=== PATIENT | female | born 1990 | race Caucasian/White ===

== ENCOUNTER 2024-01-28 09:54 | Emergency (ER) | payer MEDICAID ==
[~2024-01-28] VITALS: Ht 152.4 cm; Wt 50.0 kg
[2024-01-28 09:56] VITALS: BP 128/86; PULSE 73; RESP 20; TEMP 98.4; O2SAT 100
== END 2024-01-28 10:36 | disposition home or self-care (01) ==
LOC: ER 09:54
DX: H00.11 Chalazion right upper eyelid (principal)
CPT/HCPCS: 99281

== ENCOUNTER 2024-08-03 19:39 | Emergency (ER) | payer MEDICAID ==
[~2024-08-03] VITALS: Ht 152.4 cm; Wt 52.1 kg
[2024-08-03 19:47] VITALS: O2SAT 98
[2024-08-03] MEDS: METOCLOPRAMIDE HCL 10MG/2ML VIAL IM ONE (22:25)
[2024-08-03] MEDS: KETOROLAC 15MG/ML VIAL IM ONE (22:25)
[2024-08-03] MEDS: DEXAMETHASONE 10 MG/ML VIAL IM ONE (22:25)
[2024-08-03 22:29] VITALS: BP 128/68; PULSE 82; RESP 16; TEMP 36.72516; O2SAT 98
== END 2024-08-03 22:30 | disposition home or self-care (01) ==
LOC: ER 19:39
DX: S06.0X0A Concussion without loss of consciousness, initial encounter (principal); F41.9 Anxiety disorder, unspecified; F32.9 Major depressive disorder, single episode, unspecified; G43.909 Migraine, unspecified, not intractable, without status migrainosus; W18.39XA Other fall on same level, initial encounter; Y93.89 Activity, other specified; Y92.89 Other specified places as the place of occurrence of the external cause; Y99.8 Other external cause status
CPT/HCPCS: 81025; 96372; 99285